=== PATIENT | female | born 1990 | race Caucasian/White ===

== ENCOUNTER 2017-08-01 20:19 | Emergency (ER) | payer OTHER ==
[2017-08-01 20:25] VITALS: BP 139/71
[2017-08-01 21:01] LABS: BILIRUBIN,URINE NEGATIVE (NEGATIVE)
[2017-08-01 21:04] LABS: HCG UR QUAL NEGATIVE; UA CHARGE (STRIP ONLY) YES; UR CULTURE IF IND NOT INDICATED
[2017-08-01] MEDS ORDERED: NITROFURANTOIN MACRO 100 MG CAPSULE PO STA (21:25)
--- NOTE | 2017-08-01 21:27 | ED Physician Documentation ---
PD HPI FEMALE - Stated complaint Stated Complaint: FEMALE - Chief complaint Chief Complaint: Abd Pain - History obtained from History obtained from: Patient, Family - History of Present Illness Timing - onset: Other (Starting last night feels like she is peeing razor blades and has mild right pelvic pain status post remote appendectomy. There is no fever, chill, nausea. No vaginal discharge.) Review of Systems Constitutional: denies: Fever, Chills Respiratory: denies: Dyspnea, Cough GI: denies: Abdominal Pain, Nausea, Vomiting, Diarrhea PD PAST MEDICAL HISTORY - Past Medical History Past Medical History: No - Past Surgical History Past Surgical History: Yes General: Appendectomy Ortho: Knee replacement - Present Medications Home Medications: Ambulatory Orders Medication Instructions Recorded Confirmed Nitrofurantoin Monohyd/M-Cryst 1 tab PO BID 5 Days capsule 08/01/17 [Macrobid 100 mg Capsule] - Allergies Allergies/Adverse Reactions: Allergies Allergy/AdvReac Type Severity Reaction Status Date / Time No Known Drug Allergies Allergy Verified 08/01/17 20:25 - Social History Does the pt smoke?: No Smoking Status: Never smoker Does the pt drink ETOH?: Yes ETOH Use: Wine, Beer, Liquor Does the pt have substance abuse?: No - Immunizations Immunizations are current?: Yes - POLST Patient has POLST: No PD ED PE NORMAL - Vitals Vital signs reviewed: Yes - General General: Alert and oriented X 3, No acute distress - Abdomen Abdomen: Soft, Non tender - Back Back: No CVA TTP - Neuro Neuro: Alert and oriented X 3, Normal speech Results - Vitals Vitals: Vital Signs - 24 hr 08/01/17 20:22 Temperature 36.3 C L Heart Rate 64 Respiratory 14 Rate Blood Pressure 139/71 H O2 Saturation 100 Oxygen O2 Source Room air - Labs Labs: Laboratory Tests 08/01/17 20:30 Urine Color YELLOW Urine Clarity CLEAR Urine pH 6.0 Ur Specific [place] 1.025 Urine Protein NEGATIVE Urine Glucose (UA) NEGATIVE Urine Ketones NEGATIVE Urine Occult Blood NEGATIVE Urine Nitrite NEGATIVE Urine Bilirubin NEGATIVE Urine Urobilinogen 0.2 (NORMAL) Ur Leukocyte Esterase NEGATIVE Ur Microscopic Review NOT INDICATED Urine Culture Comments NOT INDICATED Urine HCG, Qual NEGATIVE PD MEDICAL DECISION MAKING - ED course ED course: 26-year-old woman with symptoms consistent with typical cystitis, she has a normal urinalysis though. It is not impossible to have a bladder infection in the setting of a normal urinalysis, this is well reported phenomenon and this was discussed with the patient, that said, I offered and recommended pelvic examination for wet mount and MOISES. She declined that and would like to return in a short time course if not improved on antibiotics. Departure - Departure Disposition: Home, Self Care Clinical Impression: Cystitis Condition: Good Record reviewed to determine appropriate education?: Yes Instructions: ED UTI Cystitis Female Prescriptions: Nitrofurantoin Monohyd/M-Cryst [Macrobid 100 mg Capsule] 1 tab PO BID 5 Days capsule Comments: As discussed it is a little atypical that your urinalysis is normal, if you are not better in 24-36 hours please return for reevaluation, sooner if worse. Your blood pressure was elevated today on check into the emergency department. This does not mean that you have hypertension, it is a common phenomenon to come to the emergency department and have elevated blood pressure. I recommend that you see your primary care physician within the week to have it rechecked when you are feeling better. Discharge Date/Time: 08/01/17 21:26
[2017-08-01] MEDS ORDERED: NITROFURANTOIN MACRO 100 MG CAPSULE PO ONE (21:34)
== END 2017-08-01 21:26 | disposition home or self-care (01) ==
LOC: ED 20:19
DX: N30.90 Cystitis, unspecified without hematuria (principal); R03.0 Elevated blood-pressure reading, without diagnosis of hypertension; Z96.659 Presence of unspecified artificial knee joint
CPT/HCPCS: 81003; 81025; 99282; 99283; A9270; 80053; 81001; 83690; 85025; 87086

== ENCOUNTER 2017-08-03 16:06 | Emergency (ER) | payer OTHER ==
[2017-08-03 16:44] VITALS: BP 126/85
[2017-08-03 17:00] LABS: BILIRUBIN,URINE NEGATIVE (NEGATIVE); PH,URINE 6.5 PH (5.0-7.5)
[2017-08-03 17:02] LABS: UA CHARGE (STRIP ONLY) YES; UR CULTURE IF IND NOT INDICATED
--- NOTE | 2017-08-03 17:18 | ED Physician Documentation ---
PD HPI FEMALE - Stated complaint Stated Complaint: FEMALE - Chief complaint Chief Complaint: General - History obtained from History obtained from: Patient, Family - History of Present Illness Timing - onset: How many days ago (3) Timing - duration: Days (3) Timing - details: Gradual onset Pain level max: 6, 7 Pain level max: 5 Associated symptoms: Abdominal pain (R pelvic pain), Dysuria. No: Fever, Chest/ shoulder pain, Vaginal pain, Vaginal bleeding, Vaginal discharge, Urinary frequency, Hematuria Contributing factors: No: Similar symptoms before: Diagnosis (UTI) - Additional information Additional information: seen here 2 days ago for same. placed on macrobid. states symptoms are no better. No vaginal bleeding or discharge. no itching. Review of Systems Ten Systems: 10 systems reviewed and negative Constitutional: denies: Fever, Chills Ears: denies: Ear pain Cardiac: denies: Chest pain / pressure Respiratory: denies: Cough GI: denies: Abdominal Pain, Nausea, Vomiting, Diarrhea : reports: Dysuria Skin: denies: Rash Musculoskeletal: denies: Neck pain, Back pain Neurologic: denies: Headache PD PAST MEDICAL HISTORY - Past Medical History Past Medical History: No - Past Surgical History Past Surgical History: Yes General: Appendectomy Ortho: Knee replacement - Present Medications Home Medications: Ambulatory Orders Medication Instructions Recorded Confirmed Nitrofurantoin Monohyd/M-Cryst 1 tab PO BID 5 Days capsule 08/01/17 08/03/17 [Macrobid 100 mg Capsule] Metronidazole [Flagyl] 500 mg PO BID #14 tablet 08/03/17 - Allergies Allergies/Adverse Reactions: Allergies Allergy/AdvReac Type Severity Reaction Status Date / Time No Known Drug Allergies Allergy Verified 08/03/17 16:44 - Living Situation Living Situation: reports: With family Living Arrangement: reports: At home - Social History Does the pt smoke?: No Smoking Status: Never smoker Does the pt drink ETOH?: Yes Does the pt have substance abuse?: No - Immunizations Immunizations are current?: Yes - POLST Patient has POLST: No PD ED PE NORMAL - Vitals Vital signs reviewed: Yes - General General: Alert and oriented X 3, No acute distress - HEENT HEENT: Moist mucous membranes - Neck Neck: Supple, no meningeal sign - Cardiac Cardiac: RRR - Respiratory Respiratory: No respiratory distress, Clear bilaterally - Abdomen Abdomen: Soft, Other (TTP R pelvic. no peritoneal signs.) - Female Female : [employer] present ([employer]), Other (thick white discharge. irritated cervix and vaginal inman. No CMT. no adnexal masses. ) - Back Back: No CVA TTP, No spinal TTP - Derm Derm: Warm and dry, No rash - Neuro Neuro: Alert and oriented X 3 Results - Vitals Vitals: Vital Signs - 24 hr 08/03/17 16:39 Temperature 36.8 C Heart Rate 72 Respiratory 16 Rate Blood Pressure 126/85 H O2 Saturation 100 Oxygen O2 Source Room air - Labs Labs: Microbiology 08/03/17 17:30 MOISES Preparation - Final Other - Vaginal 08/03/17 17:30 Wet Prep - Final Vaginal Laboratory Tests 08/03/17 16:50 Urine Color YELLOW Urine Clarity CLEAR Urine pH 6.5 Ur Specific [place] <=1.005 Urine Protein NEGATIVE Urine Glucose (UA) NEGATIVE Urine Ketones NEGATIVE Urine Occult Blood NEGATIVE Urine Nitrite NEGATIVE Urine Bilirubin NEGATIVE Urine Urobilinogen 0.2 (NORMAL) Ur Leukocyte Esterase NEGATIVE Ur Microscopic Review NOT INDICATED Urine Culture Comments NOT INDICATED - Rads (name of study) pelvic US Radiology: Prelim report reviewed, EMP read contemporaneously, See rad report ( normal) PD MEDICAL DECISION MAKING - ED course Complexity details: reviewed results, re-evaluated patient, considered differential, d/w patient, d/w family ED course: Patient is a 26-year-old female who presents to the emergency department with dysuria as well as right lower pelvic pain. Has a questionable cyst with questionable hemorrhage in the left ovary. Possibly contributing to her pain? She has had pain for several days, possible that is involuting. She also has some white blood cells in her vaginal canal along with discharge. Will treat with Diflucan and Flagyl. Gonorrhea and Chlamydia testing also sent even though she is low risk for this. We will continue supportive care and follow- up with her doctor. Patient counseled regarding signs and symptoms for which I believe and urgent re-evaluation would be necessary. Patient with good understanding of and agreement to plan and is comfortable going home at this time This document was made in part using voice recognition software. While efforts are made to proofread this document, sound alike and grammatical errors may occur. Departure - Departure Disposition: 01 Home, Self Care Clinical Impression: Bacterial vaginitis, Yeast infection Condition: Good Instructions: ED Vaginosis Bacterial Follow-Up: your,doctor in 1 week [Other] Prescriptions: Metronidazole [Flagyl] 500 mg PO BID #14 tablet Comments: Return if you worsen. this should improve over the next 2-3 days Discharge Date/Time: 08/03/17 19:35
--- NOTE | 2017-08-03 19:09 | Ultrasound Preliminary Report ---
Exam: US PELVIC COMPLETE - NON OB IMPRESSION: Normal pelvic ultrasound. [facility] SITE ID: [id number]
--- NOTE | 2017-08-03 19:11 | Ultrasound Report ---
EXAM: PELVIC ULTRASOUND EXAM DATE: 08/03/2017 06:48 PM. CLINICAL HISTORY: R pelvic pain. COMPARISON: None. TECHNIQUE: Realtime transabdominal pelvic scan performed to identify the uterus and adnexa and as an overview of other pelvic structures, followed by transvaginal scan to provide greater detail of the u terus and adnexa, with static image documentation. FINDINGS: Uterus: 7.9 x 3.5 x 4.9 cm, volume 68.9 cc. Anteverted position. Normal overall size and echotexture. Masses: None. Endometrium: 9 mm. Normal. Cervix: Unremarkable. Right Ovary: 2.9 x 1.6 x 2.3 cm, volume 5.6 cc. Normal echotexture and blood flow. Left Ovary: 2.9 x 2.0 x 3.1 cm, volume 9.5 cc. Normal echotexture and blood flow. Contains a 1.8 cm i nvoluting corpus luteal cyst. Free Fluid: Small fluid volume considered physiologic. Other: None. IMPRESSION: Normal pelvic ultrasound. [facility] Referring Provider Line: [phone] SITE ID: [id number]
--- NOTE | 2017-08-03 19:11 | Ultrasound Preliminary Report ---
Exam: US TRANSVAGINAL Normal pelvic ultrasound exam. SITE ID: [id number]
[2017-08-03] MEDS ORDERED: FLUCONAZOLE 100 MG TABLET PO STA (19:16)
[2017-08-03] MEDS ORDERED: metroNIDAZOLE 250 MG TABLET PO STA (19:16)
[2017-08-03] MEDS ORDERED: metroNIDAZOLE 250 MG TABLET PO ONE ×2 (19:24→19:32)
[2017-08-03] MEDS ORDERED: FLUCONAZOLE 100 MG TABLET ONE ×2 (19:25→19:26)
--- NOTE | 2017-08-03 19:48 | Ultrasound Report ---
EXAM: PELVIC ULTRASOUND EXAM DATE: 08/03/2017 06:48 PM. CLINICAL HISTORY: Right pelvic pain. COMPARISON: None. TECHNIQUE: Realtime transabdominal pelvic scan performed to identify the uterus and adnexa and as an overview of other pelvic structures, followed by transvaginal scan to provide greater detail of the u terus and adnexa, with static image documentation. FINDINGS: Uterus: 7.9 x 3.5 x 4.9 cm, volume 68.9 cc. Anteverted position. Normal overall size and echotexture. Masses: None. Endometrium: 9 mm. Normal. Cervix: Unremarkable. Right Ovary: 2.9 x 1.6 x 2.3 cm, volume 5.6 cc. Normal echotexture and blood flow. Left Ovary: 2.9 x 2.0 x 3.1 cm, volume 9.5 cc. Normal echotexture and blood flow. Contains a 1.8 cm i nvoluting corpus luteal cyst. Free Fluid: Small fluid volume considered physiologic. Other: None. IMPRESSION: Normal pelvic ultrasound. [facility] Referring Provider Line: [phone] SITE ID: [id number]
== END 2017-08-03 19:35 | disposition home or self-care (01) ==
LOC: ED 16:06
DX: N76.0 Acute vaginitis (principal); B96.89 Other specified bacterial agents as the cause of diseases classified elsewhere; B37.3 Candidiasis of vulva and vagina; Z96.659 Presence of unspecified artificial knee joint
CPT/HCPCS: 76830; 76856; 81003; 87210; 87220; 87491; 87591; 99283; A9270; 81001; 87086

== ENCOUNTER 2019-07-12 08:00 | Outpatient (CLI) | payer OTHER ==
[2019-07-12 20:51] LABS: CANDIDA GROUP DNA POSITIVE (NEGATIVE); CANDIDA KRUSEI DNA NEGATIVE (NEGATIVE); TRICHOMONAS VAGINALIS DNA NEGATIVE (NEGATIVE)
== END 2019-07-12 23:59 | disposition home or self-care (01) ==
LOC: LAB.R 08:00
PROVIDERS: ATTEND Nurse Practitioner Obstetrics & Gynecology
DX: N76.0 Acute vaginitis (principal)
CPT/HCPCS: 87661; 87801

== ENCOUNTER 2019-07-12 08:59 | Outpatient (CLI) | payer OTHER | END 2019-07-12 09:00 | disposition home or self-care (01) | LOC: LAB 08:59 | PROVIDERS: ATTEND Nurse Practitioner Obstetrics & Gynecology | DX: N76.0 Acute vaginitis (principal); R63.5 Abnormal weight gain | CPT/HCPCS: 36415; 84443; 87661; 87801 ==

== ENCOUNTER 2019-09-10 08:00 | Outpatient (CLI) | payer OTHER ==
[2019-09-10 23:04] LABS: CANDIDA GROUP DNA NEGATIVE (NEGATIVE); CANDIDA KRUSEI DNA NEGATIVE (NEGATIVE); TRICHOMONAS VAGINALIS DNA NEGATIVE (NEGATIVE)
== END 2019-09-10 23:59 | disposition home or self-care (01) ==
LOC: LAB.R 08:00
PROVIDERS: ATTEND Nurse Practitioner Obstetrics & Gynecology
DX: N76.0 Acute vaginitis (principal)
CPT/HCPCS: 87661; 87801

== ENCOUNTER 2020-02-19 05:29 | Emergency (ER) | payer OTHER ==
[2020-02-19 05:40] VITALS: BP 137/79
--- NOTE | 2020-02-19 05:54 | ED Physician Documentation ---
PD HPI BACK PAIN - Stated complaint Stated Complaint: BACK INJ - Chief complaint Chief Complaint: Back Pain - History obtained from History obtained from: Patient - History of Present Illness Timing - onset: Last night Timing - details: Abrupt onset Pain level max: 8 Pain level now: 8 Location: Lower, Other (across lower back, worst on right paralumbar) Quality: Pain Associated symptoms: No: Fever, Weakness, Numbness, Incontinent of urine, Unable to urinate, Hematuria, Incontinent of stool Improves with: Rest, Position (standing) Worsened by: Movement Contributing factors: Lifting Similar symptoms before: Has not had sx before Recently seen: Not recently seen - Additional information Additional information: c/o sudden onset low back pain last night when picking up her 80-pound dog. pain is across lower back but mostly right lower back, worse with movement, and unrelieved with ibuprofen Review of Systems Constitutional: denies: Fever GI: denies: Abdominal Pain, Nausea, Vomiting : denies: Incontinent Musculoskeletal: reports: Back pain Neurologic: denies: Focal weakness, Numbness PD PAST MEDICAL HISTORY - Past Medical History Past Medical History: No - Past Surgical History Past Surgical History: Yes General: Appendectomy Ortho: Knee replacement - Present Medications Home Medications: Ambulatory Orders Medication Instructions Recorded Confirmed Nitrofurantoin Monohyd/M-Cryst 1 tab PO BID 5 Days capsule 08/01/17 08/03/17 [Macrobid 100 mg Capsule] metroNIDAZOLE [Flagyl] 500 mg PO BID #14 tablet 08/03/17 Cyclobenzaprine [Flexeril] 10 mg PO TID PRN #20 tablet 02/19/20 oxyCODONE/ACET 5/325 [Percocet 5 1 - 2 each PO Q4-6H PRN #14 tablet 02/18/20 mg/325 mg] - Allergies Allergies/Adverse Reactions: Allergies Allergy/AdvReac Type Severity Reaction Status Date / Time No Known Drug Allergies Allergy Verified 02/19/20 05:40 - Living Situation Living Arrangement: reports: At home - Social History Does the pt smoke?: No Smoking Status: Never smoker Does the pt drink ETOH?: Yes Does the pt have substance abuse?: No - Immunizations Immunizations are current?: Yes - POLST Patient has POLST: No PD ED PE NORMAL - Vitals Vital signs reviewed: Yes - General General: Alert and oriented X 3, Well developed/nourished, Other (appears uncomfortable, mild-moderate painful distress) - Abdomen Abdomen: Soft, Non tender - Back Back: No CVA TTP, No spinal TTP - Derm Derm: Normal color, Warm and dry, No rash - Neuro Neuro: No motor deficit (5/5 bilateral plantar flexion), No sensory deficit, Other (2+/4 bilateral patellar reflexes) Results - Vitals Vitals: Vital Signs - 24 hr 02/19/20 02/19/20 05:38 06:42 Temperature 36.8 C Heart Rate 71 84 Respiratory 17 18 Rate Blood Pressure 137/79 H O2 Saturation 100 99 Oxygen O2 Source Room air PD MEDICAL DECISION MAKING - ED course Complexity details: considered differential, d/w patient ED course: atraumatic low back pain, sudden onset with obvious (temporally-related) inciting incident (heavy lifting). no "red flags" such as fever, numbness, weakness, incontinence, rash, or fever. emergent testing not indicated, will rx oxycodone and flexeril, rest and f/u with PMD, return if worse Departure - Departure Disposition: 01 Home, Self Care Clinical Impression: Back sprain Condition: Good Instructions: ED Sprain Strain Lumbar Prescriptions: Cyclobenzaprine [Flexeril] 10 mg PO TID PRN #20 tablet PRN Reason: Spasms oxyCODONE/ACET 5/325 [Percocet 5 mg/325 mg] 1 - 2 each PO Q4-6H PRN #14 tablet PRN Reason: Pain Forms: Activity restrictions Discharge Date/Time: 02/19/20 06:42
[2020-02-19] MEDS ORDERED: oxyCODONE/ACET 5/325 Prepack 4 PO STA (06:32)
[2020-02-19] MEDS ORDERED: CYCLOBENZAPRINE 10 MG TABLET PO STA (06:33)
== END 2020-02-19 06:42 | disposition home or self-care (01) ==
LOC: ED 05:29
DX: S33.5XXA Sprain of ligaments of lumbar spine, initial encounter (principal); X50.0XXA Overexertion from strenuous movement or load, initial encounter; Y93.89 Activity, other specified
CPT/HCPCS: 99282; 99284; A9270

== ENCOUNTER 2020-03-06 13:45 | Outpatient (CLI) | payer OTHER ==
[2020-03-06 18:36] LABS: ALBUMIN 4.6 g/dL (3.2-5.5); ALBUMIN/GLOBULIN RATIO 1.5 (1.0-2.2); BILIRUBIN,TOTAL 0.6 mg/dL (0.2-1.0); CALCIUM 9.3 mg/dL (8.5-10.3); CREATININE 0.6 mg/dL (0.4-1.0); TOTAL PROTEIN 7.7 g/dL (6.7-8.2)
[2020-03-06 18:51] LABS: BASOPHILS % (AUTO) 0.4 %; EOSINOPHILS # (AUTO) 0.1 10^3/uL (0.0-0.7); HGB - HEMOGLOBIN 13.4 g/dL (12.0-16.0); LYMPHOCYTES # (AUTO) 1.7 10^3/uL (1.5-3.5); LYMPHOCYTES % (AUTO) 24.7 %; MEAN CORPUSCULAR HEMOGLOBIN 30.4 pg (27.0-31.0); MEAN CORPUSCULAR HGB CONC 33.3 g/dL (32.0-36.0); MEAN CORPUSCULAR VOLUME 91.4 fL (81.0-99.0); MEAN PLATELET VOLUME 11.2 fL (7.9-10.8); MONOCYTES # (AUTO) 0.4 10^3/uL (0.0-1.0); MONOCYTES % (AUTO) 5.2 %; NEUTROPHILS # (AUTO) 4.7 10^3/uL (1.5-6.6); NEUTROPHILS % (AUTO) 68.4 %; PLT - PLATELET COUNT 238 10^3/uL (130-450); RED BLOOD COUNT 4.41 10^6/uL (4.20-5.40); RED CELL DISTRIBUTION WIDTH 11.6 % (12.0-15.0); WHITE BLOOD COUNT 6.9 x10^3/uL (4.8-10.8)
== END 2020-03-06 23:59 | disposition home or self-care (01) ==
LOC: LAB.WCP 13:45
PROVIDERS: ATTEND Physician Assistant
DX: Z00.00 Encounter for general adult medical examination without abnormal findings (principal); R63.5 Abnormal weight gain
CPT/HCPCS: 36415; 80053; 84443; 85025

== ENCOUNTER 2020-06-20 10:59 | Outpatient (CLI) | payer OTHER ==
--- NOTE | 2020-06-20 11:47 | XRAY Report ---
PROCEDURE: Lumbar Spine 2 View INDICATIONS: LOW BACK PAIN, CHRONIC TECHNIQUE: 2 views of the lumbar spine were acquired. COMPARISON: None. FINDINGS: Bones: 5 [id number] vertebrae are present. There is normal vertebral body height and alignment . L4-L5 disc height loss. Mild facet osteoarthropathy of the L4-L5 and L5-S1. No suspicious bony lesi ons. Soft tissues: Overlying bowel gas pattern is normal. No suspicious soft tissue calcifications. IMPRESSION: Lower lumbar spine degenerative changes. Reviewed by: Shon Linton MD on 06/20/2020 11:46 AM PDT Approved by: Shon Linton MD on 06/20/2020 11:46 AM PDT Station ID: [id number]
== END 2020-06-20 11:00 | disposition home or self-care (01) ==
LOC: DI 10:59
PROVIDERS: ATTEND Family Medicine
DX: M47.816 Spondylosis without myelopathy or radiculopathy, lumbar region (principal)
CPT/HCPCS: 72100

== ENCOUNTER 2021-01-24 16:17 | Outpatient (CLI) | payer OTHER ==
--- NOTE | 2021-01-25 15:18 | Ultrasound Report ---
PROCEDURE: OB First Trimester INDICATIONS: + TEST OUTSIDE/PRIOR DATING DATA: Last menstrual period (LMP): 12/01/2020. LMP-based estimated date of delivery (JADIEL): 09/07/2021. First dating scan (date and location): This study. Estimated date of delivery (JADIEL) from first dating scan: 09/02/2021. TECHNIQUE: Real-time scanning was performed of the fetus and maternal pelvic organs, with image documentation. COMPARISON: None FINDINGS: There is a single living intrauterine gestation with crown-rump length 1.9 cm correlated w ith a gestational age of 8 weeks 3 days, +/- 5 days. heart rate at 171 bpm is normal. Maternal cervix is closed. Amniotic fluid present is normal in appearance. Embryo: Viable gestation with small adjacent perigestational hemorrhage as noted below. Measurement variability in dating: +/- 4 weeks by LMP, +/- 7 days by mean sac diameter (use before 6 weeks gestation if crown-rump length not able to be measured), +/- 5 days by crown-rump length (6-12 weeks gestation). Maternal organs: Ovaries normal considering gestational status. IMPRESSION: First trimester intrauterine gestation, with estimated current gestational age of 8 weeks 3 days, +/- 5 days and with the delivery date projected to be centered on 09/02/2021. A small subchorionic hemor rhage measuring 2.4 x 1.7 x 2.2 cm is incidentally noted. Follow-up anatomic survey ultrasound is recommended at 20-21 weeks of gestation. Reviewed by: Lazaro Rausch MD on 01/25/2021 3:16 PM PDT Approved by: Lazaro Rausch MD on 01/25/2021 3:16 PM PDT Station ID: [id number]
== END 2021-01-24 16:18 | disposition home or self-care (01) ==
LOC: DI 16:17
PROVIDERS: ATTEND Nurse Practitioner Obstetrics & Gynecology
DX: Z32.01 Encounter for pregnancy test, result positive (principal)

== ENCOUNTER 2021-02-14 11:02 | Outpatient (CLI) | payer OTHER ==
[2021-02-14 11:28] LABS: BASOPHILS % (AUTO) 0.1 %; EOSINOPHILS % (AUTO) 0.5 %; HCT - HEMATOCRIT 37.5 % (37.0-47.0); HGB - HEMOGLOBIN 12.9 g/dL (12.0-16.0); LYMPHOCYTES # (AUTO) 1.5 10^3/uL (1.5-3.5); LYMPHOCYTES % (AUTO) 19.3 %; MEAN CORPUSCULAR HEMOGLOBIN 30.4 pg (27.0-31.0); MEAN CORPUSCULAR HGB CONC 34.4 g/dL (32.0-36.0); MEAN CORPUSCULAR VOLUME 88.2 fL (81.0-99.0); MEAN PLATELET VOLUME 10.5 fL (7.9-10.8); MONOCYTES # (AUTO) 0.3 10^3/uL (0.0-1.0); MONOCYTES % (AUTO) 4.4 %; NEUTROPHILS # (AUTO) 5.7 10^3/uL (1.5-6.6); NEUTROPHILS % (AUTO) 75.6 %; PLT - PLATELET COUNT 207 10^3/uL (130-450); RED BLOOD COUNT 4.25 10^6/uL (4.20-5.40); RED CELL DISTRIBUTION WIDTH 12.3 % (12.0-15.0); WHITE BLOOD COUNT 7.6 x10^3/uL (4.8-10.8)
[2021-02-21 11:57] LABS: HEPATITIS B SURFACE ANTIGEN NON-REACTIVE
[2021-02-21 12:00] LABS: HEPATITIS C ANTIBODY NON-REACTIVE
== END 2021-02-14 11:03 | disposition home or self-care (01) ==
LOC: LAB 11:02
PROVIDERS: ATTEND Nurse Practitioner Obstetrics & Gynecology
DX: Z34.90 Encounter for supervision of normal pregnancy, unspecified, unspecified trimester (principal); Z36.89 Encounter for other specified antenatal screening
CPT/HCPCS: 36415; 85025; 86592; 86762; 86787; 86803; 86850; 86900; 86901; 87340; 87389

== ENCOUNTER 2021-07-04 14:01 | Outpatient (CLI) | payer OTHER ==
[2021-07-04 14:23] LABS: HCT - HEMATOCRIT 36.9 % (37.0-47.0); HGB - HEMOGLOBIN 12.3 g/dL (12.0-16.0); MEAN CORPUSCULAR HEMOGLOBIN 31.4 pg (27.0-31.0); MEAN CORPUSCULAR HGB CONC 33.3 g/dL (32.0-36.0); MEAN CORPUSCULAR VOLUME 94.1 fL (81.0-99.0); RED BLOOD COUNT 3.92 10^6/uL (4.20-5.40); RED CELL DISTRIBUTION WIDTH 12.6 % (12.0-15.0); WHITE BLOOD COUNT 12.9 x10^3/uL (4.8-10.8)
[2021-07-04 14:36] LABS: ALBUMIN 3.3 g/dL (3.2-5.5); ALBUMIN/GLOBULIN RATIO 0.9 (1.0-2.2); BILIRUBIN,TOTAL 0.3 mg/dL (0.2-1.0); CREATININE 0.5 mg/dL (0.4-1.0); POTASSIUM 3.8 mmol/L (3.5-5.0); TOTAL PROTEIN 7.1 g/dL (6.7-8.2)
[2021-07-04 15:46] LABS: CREATININE,URINE 62.6 mg/dL; PROTEIN/CREATININE RATIO,URINE 0.2 (<=0.2)
== END 2021-07-04 14:02 | disposition home or self-care (01) ==
LOC: LAB 14:01
PROVIDERS: ATTEND Nurse Practitioner Obstetrics & Gynecology
DX: R03.0 Elevated blood-pressure reading, without diagnosis of hypertension (principal)
CPT/HCPCS: 36415; 80053; 82570; 84156; 85027

== ENCOUNTER 2021-07-12 11:30 | Outpatient (CLI) | payer OTHER ==
[2021-07-12 20:28] LABS: BACTERIAL VAGINOSIS DNA NEGATIVE (NEGATIVE); CANDIDA GLABRATA DNA NEGATIVE (NEGATIVE); CANDIDA GROUP DNA POSITIVE (NEGATIVE); CANDIDA KRUSEI DNA NEGATIVE (NEGATIVE); TRICHOMONAS VAGINALIS DNA NEGATIVE (NEGATIVE)
== END 2021-07-12 23:59 | disposition home or self-care (01) ==
LOC: LAB 11:30
PROVIDERS: ATTEND Obstetrics & Gynecology
DX: O99.891 Other specified diseases and conditions complicating pregnancy (principal); L29.8 Other pruritus
CPT/HCPCS: 87661; 87801

== ENCOUNTER 2021-08-02 14:22 | Outpatient (CLI) | payer OTHER ==
[2021-08-02 16:33] LABS: BASOPHILS % (AUTO) 0.3 %; EOSINOPHILS # (AUTO) 0.1 10^3/uL (0.0-0.7); HCT - HEMATOCRIT 35.7 % (37.0-47.0); LYMPHOCYTES # (AUTO) 1.9 10^3/uL (1.5-3.5); LYMPHOCYTES % (AUTO) 14.9 %; MEAN CORPUSCULAR HEMOGLOBIN 30.9 pg (27.0-31.0); MEAN CORPUSCULAR HGB CONC 33.6 g/dL (32.0-36.0); MEAN PLATELET VOLUME 10.2 fL (7.9-10.8); MONOCYTES # (AUTO) 0.8 10^3/uL (0.0-1.0); MONOCYTES % (AUTO) 6.3 %; NEUTROPHILS # (AUTO) 9.7 10^3/uL (1.5-6.6); NEUTROPHILS % (AUTO) 76.6 %; PLT - PLATELET COUNT 190 10^3/uL (130-450); RED BLOOD COUNT 3.88 10^6/uL (4.20-5.40); RED CELL DISTRIBUTION WIDTH 12.6 % (12.0-15.0); WHITE BLOOD COUNT 12.6 x10^3/uL (4.8-10.8)
[2021-08-02 16:45] LABS: ALBUMIN 3.1 g/dL (3.2-5.5); BILIRUBIN,TOTAL 0.5 mg/dL (0.2-1.0); CALCIUM 9.3 mg/dL (8.5-10.3); CREATININE 0.8 mg/dL (0.4-1.0); POTASSIUM 3.7 mmol/L (3.5-5.0); TOTAL PROTEIN 6.3 g/dL (6.7-8.2)
[2021-08-02 17:11] LABS: CREATININE,URINE 91.7 mg/dL; PROTEIN/CREATININE RATIO,URINE 0.1 (<=0.2)
[2021-08-02 17:31] VITALS: BP 137/78
--- NOTE | 2021-08-02 17:51 | PROCEDURE REPORT ---
- HPI Diagnosis/Indication for NST: Gestational Hypertension Current EDU 09/07/21 Gestation 34 Weeks and 6 Days 1 Para 0 Vital Signs Temperature 98.6 F 08/02/21 14:33 Heart Rate 98 08/02/21 14:33 Respiratory Rate 18 08/02/21 14:33 Blood Pressure 162/91 H 08/02/21 14:33 O2 Saturation 100 08/02/21 14:33 Temperature 98.6 F 08/02/21 14:35 Heart Rate 98 08/02/21 14:33 Respiratory Rate 18 08/02/21 14:33 Blood Pressure 137/78 H 08/02/21 17:31 O2 Saturation 100 08/02/21 14:33 - NST Procedure NST Procedure Start Date 08/02/21 Start Time 14:31 Stop Time 14:55 Vibroacoustic Stimulation Used No Patient States Movement Yes - Results and Plan Findings/Impression: heart rate baseline 150 bpm Moderate variability Accelerations 15 x 15 Decelerations none Rare contractions with one noted in 20 minutes BPP 8 out of 8 Plan: 30-year-old at 34 weeks 6 days with gestational hypertension presenting for scheduled NST and BPP. BPP reactive and reassuring NST and BPP reactive and reassuring. Initial blood pressure was severe range. Status post prolonged blood pressure monitoring and blood pressures were mild to normal range. Preeclampsia labs within normal limits. Preeclampsia warnings given. Continue testing.
--- NOTE | 2021-08-02 18:24 | Ultrasound Report ---
PROCEDURE: OB Biophysical Profile INDICATIONS: GHTN OUTSIDE/PRIOR DATING DATA: Last menstrual period (LMP): 12/01/2020. LMP-based estimated date of delivery (JADIEL): 09/07/2021. First dating scan (date and location): 01/24/2021. Estimated date of delivery (JADIEL) from first dating scan: 09/02/2021. TECHNIQUE: Real-time scanning was performed of the fetus, with image documentation and biometric jairo surements. Biophysical profile was also obtained. Endovaginal scanning: None COMPARISON: 01/24/2021 FINDINGS: General: A single living intrauterine gestation is present. Presentation: Vertex Placenta: Placental position is anterior, without previa. Amniotic fluid index: 19.2 cm, normal for gestational age. heart rate: 131 beats per minute. Maternal cervical canal: Nonvisualized Estimated gestational age from initial scan: 35 week 4 day Biophysical profile: 8 out of 8 Tone: 2 points. Movement: 2 points. Respiration: 2 points. Largest pocket of fluid: 2 points. Largest vertical pocket 6.1 cm Umbilical artery Doppler ratios: 2.6, 2.2, 2.2 IMPRESSION: Single live intrauterine consistent with 35 week 4 day gestation. Biophysical profile score 8 out of 8. Amniotic fluid index 19.2 cm Reviewed by: Austin Blanton MD on 08/02/2021 5:22 PM [place] Approved by: Austin Blanton MD on 08/02/2021 5:22 PM AKST Station ID: [id number]
== END 2021-08-02 17:41 | disposition home or self-care (01) ==
LOC: WFO 14:22 → FBP 14:28 → WFO 17:41
PROVIDERS: ATTEND Obstetrics & Gynecology
DX: O13.3 Gestational [pregnancy-induced] hypertension without significant proteinuria, third trimester (principal); Z3A.34 34 weeks gestation of pregnancy
CPT/HCPCS: 36415; 59025; 80053; 82570; 84156; 85025; 99215

== ENCOUNTER 2021-08-07 13:56 | Outpatient (CLI) | payer OTHER ==
[2021-08-07 15:47] LABS: BASOPHILS % (AUTO) 0.1 %; EOSINOPHILS # (AUTO) 0.1 10^3/uL (0.0-0.7); HCT - HEMATOCRIT 35.3 % (37.0-47.0); HGB - HEMOGLOBIN 11.8 g/dL (12.0-16.0); LYMPHOCYTES # (AUTO) 1.4 10^3/uL (1.5-3.5); LYMPHOCYTES % (AUTO) 13.2 %; MEAN CORPUSCULAR HEMOGLOBIN 31.2 pg (27.0-31.0); MEAN CORPUSCULAR HGB CONC 33.4 g/dL (32.0-36.0); MEAN CORPUSCULAR VOLUME 93.4 fL (81.0-99.0); MEAN PLATELET VOLUME 10.6 fL (7.9-10.8); MONOCYTES # (AUTO) 0.7 10^3/uL (0.0-1.0); MONOCYTES % (AUTO) 6.7 %; NEUTROPHILS # (AUTO) 8.2 10^3/uL (1.5-6.6); NEUTROPHILS % (AUTO) 78.5 %; PLT - PLATELET COUNT 211 10^3/uL (130-450); RED BLOOD COUNT 3.78 10^6/uL (4.20-5.40); RED CELL DISTRIBUTION WIDTH 12.8 % (12.0-15.0); WHITE BLOOD COUNT 10.4 x10^3/uL (4.8-10.8)
[2021-08-07 15:56] LABS: ALBUMIN 2.9 g/dL (3.2-5.5); ALBUMIN/GLOBULIN RATIO 0.9 (1.0-2.2); ALKALINE PHOSPHATASE 103 IU/L (42-121); ALT ALANINE AMINOTRANSFERASE 21 IU/L (10-60); AST ASPARTATE AMINOTRANSFERASE 19 IU/L (10-42); BILIRUBIN,TOTAL < 0.2 mg/dL (0.2-1.0); BUN - BLOOD UREA NITROGEN 9 mg/dL (6-20); CALCIUM 9.4 mg/dL (8.5-10.3); CARBON DIOXIDE - CO2 22 mmol/L (21-32); CHLORIDE 103 mmol/L (101-111); CREATININE 0.6 mg/dL (0.4-1.0); GFR - MDRD 117 (>89); GLUCOSE 125 mg/dL (70-100); POTASSIUM 3.5 mmol/L (3.5-5.0); SODIUM 136 mmol/L (135-145); TOTAL PROTEIN 6.1 g/dL (6.7-8.2)
--- NOTE | 2021-08-07 15:58 | PROCEDURE REPORT ---
- HPI Diagnosis/Indication for NST: Gestational Hypertension Vital Signs Temperature 98.1 F 08/07/21 14:07 Heart Rate 106 H 08/07/21 14:07 Respiratory Rate 20 08/07/21 14:07 Blood Pressure 141/91 H 08/07/21 14:07 Temperature 98.8 F 08/07/21 14:10 Heart Rate 106 H 08/07/21 14:30 Respiratory Rate 20 08/07/21 14:07 Blood Pressure 133/79 H 08/07/21 14:30 O2 Saturation - NST Procedure NST Procedure Start Time 14:31 Stop Time 14:55 30 yo at 35 5/7 weeks presents for NST for Gestational Hypertension. Patient reports good movement. Patient denies contractions, SROM or vaginal bleeding. Patient denies headaches, blurred vision or Right upper quadrant pain. O- BP today was 141/91, then 156/88, 148/78, 123/78, 122/71 NST: baseline 140 with Moderate variability and 15X15 accelerations. No decelerations. No contractions. Reactive NST, Category I Monitor strip. A-IUP 35 5/7 with Gestational Hypertension. P- Keep all clinic and monitoring appoitments.
--- NOTE | 2021-08-07 16:03 | PROVIDER PROGRESS NOTE ---
- HPI Chief Complaint: Hypertension/PIH Current : Vital Signs Temperature 98.1 F 08/07/21 14:07 Heart Rate 106 H 08/07/21 14:07 Respiratory Rate 20 08/07/21 14:07 Blood Pressure 141/91 H 08/07/21 14:07 Temperature 98.8 F 08/07/21 14:10 Heart Rate 106 H 08/07/21 14:30 Respiratory Rate 20 08/07/21 14:07 Blood Pressure 133/79 H 08/07/21 14:30 O2 Saturation - Exam 30 yo 35 5/7 with Gestational Hypertension presented for NST. Patient had two elevated Blood pressures. Patient denies all symptoms. Patient reports good movement. Patient denies contractions, SROM or vaginal bleeding. O- 141/91, 148/78, 123/78, 122/71 General: Patient is resting on bed and is in no acute distress. Chest: Clear to auscultation. Good breath sounds in all coffey. Heart: RRR without murmur or gallop. Abdomen: Soft, non-tender to palpation, Gravid Extremities: No pitting pretibial or pedal edema, no calf tenderness NST: 140 baseline, moderate variability and Accelerations are present. Pre-Eclampsia labs are all within normal limits. Platelets are 211 thousand. Normal liver and kidney functions A-IUP 35 5/7 with Gestational Hypertension. P- Patient has BPP scheduled at 5:30 pm today. Keep all appointments. Follow- up with Dr. Felix on Friday as scheduled. If patient develops headache, blurred vision, right upper quadrant pain, or any labor symptoms she can come into labor and delivery. - Procedures NST Procedure: NST Procedure Start Time 14:31 Stop Time 14:55
[2021-08-07 16:29] VITALS: BP 132/67
[2021-08-07 16:47] LABS: CREATININE,URINE 38.8 mg/dL; PROTEIN/CREATININE RATIO,URINE 0.2 (<=0.2)
== END 2021-08-07 16:07 | disposition home or self-care (01) ==
LOC: WFO 13:56 → FBP 13:58 → WFO 16:07
PROVIDERS: ATTEND Obstetrics & Gynecology
DX: O13.3 Gestational [pregnancy-induced] hypertension without significant proteinuria, third trimester (principal); Z3A.35 35 weeks gestation of pregnancy
CPT/HCPCS: 36415; 59025; 80053; 82570; 84156; 84550; 85025

== ENCOUNTER 2021-08-07 17:33 | Outpatient (CLI) | payer OTHER ==
--- NOTE | 2021-08-15 14:08 | Ultrasound Report ---
PROCEDURE: OB Biophysical Profile INDICATIONS: GESTATIONAL HYPERTENSION, THIRD TRIMESTER OUTSIDE/PRIOR DATING DATA: Last menstrual period (LMP): 12/01/2020. LMP-based estimated date of delivery (JADIEL): 09/07/2021. First dating scan (date and location): 01/24/2021. Estimated date of delivery (JADIEL) from first dating scan: 09/02/2021. The below data below was generated using the ultrasound JADEIL of 09/02/2021 TECHNIQUE: Real-time scanning was performed of the fetus, with image documentation and biometric jairo surements. Biophysical profile was also obtained. COMPARISON: OB ultrasound 08/02/2021 FINDINGS: General: A single living intrauterine gestation is present. Presentation: Vertex Placenta: Placental position is anterior, without previa. Amniotic fluid index: 17.9 cm cm, within normal limits for gestational age. Largest pocket 4.7 cm heart rate: 136 beats per minute. Maternal cervical canal: 3.2 cm long; normal length is 2.5 cm or more. biometrics: Estimated gestational age from initial scan: 36 weeks 2 days Biophysical profile: Tone: 2 points. Movement: 2 points. Respiration: 2 points. Largest pocket of fluid: 2 points. Umbilical artery Doppler: 2.2, 2.3, 2.1 IMPRESSION: Single live intrauterine . BPP 8 out of 8 Reviewed by: Anat Steele MD on 08/08/2021 4:22 PM PST Approved by: Anat Steele MD on 08/08/2021 4:22 PM PST Station ID: [id number]
== END 2021-08-07 17:34 | disposition home or self-care (01) ==
LOC: DI 17:33
PROVIDERS: ATTEND Obstetrics & Gynecology
DX: O13.3 Gestational [pregnancy-induced] hypertension without significant proteinuria, third trimester (principal); Z3A.36 36 weeks gestation of pregnancy

== ENCOUNTER 2021-08-10 08:00 | Outpatient (CLI) | payer OTHER | END 2021-08-10 23:59 | disposition home or self-care (01) | LOC: LAB 08:00 | PROVIDERS: ATTEND Obstetrics & Gynecology | DX: Z36.85 Encounter for antenatal screening for Streptococcus B (principal) | CPT/HCPCS: 87797 ==

== ENCOUNTER 2021-08-10 12:22 | Outpatient (CLI) | payer OTHER ==
[2021-08-10 12:49] LABS: BASOPHILS % (AUTO) 0.3 %; EOSINOPHILS # (AUTO) 0.1 10^3/uL (0.0-0.7); EOSINOPHILS % (AUTO) 0.8 %; HCT - HEMATOCRIT 37.6 % (37.0-47.0); HGB - HEMOGLOBIN 12.6 g/dL (12.0-16.0); LYMPHOCYTES # (AUTO) 1.5 10^3/uL (1.5-3.5); LYMPHOCYTES % (AUTO) 12.6 %; MEAN CORPUSCULAR HEMOGLOBIN 31.1 pg (27.0-31.0); MEAN CORPUSCULAR HGB CONC 33.5 g/dL (32.0-36.0); MEAN CORPUSCULAR VOLUME 92.8 fL (81.0-99.0); MEAN PLATELET VOLUME 10.2 fL (7.9-10.8); MONOCYTES # (AUTO) 0.8 10^3/uL (0.0-1.0); MONOCYTES % (AUTO) 6.7 %; NEUTROPHILS # (AUTO) 9.2 10^3/uL (1.5-6.6); NEUTROPHILS % (AUTO) 78.8 %; PLT - PLATELET COUNT 201 10^3/uL (130-450); RED BLOOD COUNT 4.05 10^6/uL (4.20-5.40); RED CELL DISTRIBUTION WIDTH 12.7 % (12.0-15.0); WHITE BLOOD COUNT 11.7 x10^3/uL (4.8-10.8)
[2021-08-10 13:01] LABS: ALBUMIN/GLOBULIN RATIO 0.9 (1.0-2.2); BILIRUBIN,TOTAL 0.3 mg/dL (0.2-1.0); CALCIUM 9.5 mg/dL (8.5-10.3); CREATININE 0.6 mg/dL (0.4-1.0); POTASSIUM 3.7 mmol/L (3.5-5.0); TOTAL PROTEIN 6.5 g/dL (6.7-8.2)
[2021-08-10 13:10] LABS: CREATININE,URINE 50.4 mg/dL; PROTEIN/CREATININE RATIO,URINE 0.2 (<=0.2)
== END 2021-08-10 12:23 | disposition home or self-care (01) ==
LOC: LAB 12:22
PROVIDERS: ATTEND Obstetrics & Gynecology
DX: O13.3 Gestational [pregnancy-induced] hypertension without significant proteinuria, third trimester (principal)
CPT/HCPCS: 36415; 80053; 82570; 84156; 85025

== ENCOUNTER 2021-08-10 13:49 | Outpatient (CLI) | payer OTHER ==
[2021-08-10 15:25] VITALS: BP 130/81
--- NOTE | 2021-08-20 23:29 | PROCEDURE REPORT ---
- HPI Diagnosis/Indication for NST: Gestational Hypertension Current EDU 09/07/21 Gestation 36 Weeks and 0 Days 1 Para 0 Vital Signs Temperature 97.9 F 08/10/21 14:11 Heart Rate 107 H 08/10/21 14:11 Respiratory Rate 18 08/10/21 14:11 Blood Pressure 140/84 H 08/10/21 14:11 O2 Saturation 99 08/10/21 14:11 Temperature 97.9 F 08/10/21 14:11 Heart Rate 100 08/10/21 14:20 Respiratory Rate 18 08/10/21 14:11 Blood Pressure 130/81 H 08/10/21 14:45 O2 Saturation 99 08/10/21 14:11 - NST Procedure NST Procedure Start Date 08/10/21 Start Time 13:56 Stop Time 14:18 Vibroacoustic Stimulation Used No Patient States Movement Yes EFM 135 mod sarah 15x15 accels no decels TOCO: quiet - Results and Plan Findings/Impression: 30 yo at 36+0 with affected by GHTN here for NST Cat I tracing Cont with twice weekly NST and weekly LYNN Anticipate IOL at 37 wga DOS: 08/10/21 NST read 08/10/21 DX: IUP at 36+0 wga GHTN
== END 2021-08-10 15:15 | disposition home or self-care (01) ==
LOC: WFO 13:49 → FBP 13:51 → WFO 15:15
PROVIDERS: ATTEND Obstetrics & Gynecology
DX: O13.3 Gestational [pregnancy-induced] hypertension without significant proteinuria, third trimester (principal); Z36.85 Encounter for antenatal screening for Streptococcus B; Z3A.36 36 weeks gestation of pregnancy
CPT/HCPCS: 36415; 59025; 80053; 82570; 84156; 85025; 87797

== ENCOUNTER 2021-08-14 13:55 | Outpatient (CLI) | payer OTHER ==
[2021-08-14 14:36] VITALS: BP 141/87
--- NOTE | 2021-08-20 23:26 | PROCEDURE REPORT ---
- HPI Diagnosis/Indication for NST: Gestational Hypertension Current EDU 09/07/21 Gestation 36 Weeks and 4 Days 1 Para 0 Vital Signs Temperature 97.9 F 08/14/21 14:10 Heart Rate 100 08/14/21 14:10 Respiratory Rate 18 08/14/21 14:10 Blood Pressure 141/87 H 08/14/21 14:10 Temperature 97.9 F 08/14/21 14:35 Heart Rate 100 08/14/21 14:10 Respiratory Rate 18 08/14/21 14:10 Blood Pressure 141/87 H 08/14/21 14:10 O2 Saturation - NST Procedure NST Procedure Start Date 08/14/21 Start Time 14:02 Stop Time 14:30 Vibroacoustic Stimulation Used No Patient States Movement Yes EFM 145 mod sarah 15x15 accels no decels TOCO: quiet - Results and Plan Findings/Impression: 30 yo at 36+4 with affected by GHTN here for NST Cat I tracing Cont with twice weekly NST and weekly LYNN Anticipate IOL at 37 wga DOS: 08/14/21 NST read 08/14/21 DX: IUP at 36+4 wga GHTN
== END 2021-08-14 14:45 | disposition home or self-care (01) ==
LOC: WFO 13:55 → FBP 13:56 → WFO 14:45
PROVIDERS: ATTEND Obstetrics & Gynecology
DX: O13.3 Gestational [pregnancy-induced] hypertension without significant proteinuria, third trimester (principal); Z3A.37 37 weeks gestation of pregnancy
CPT/HCPCS: 59025

== ENCOUNTER 2021-08-14 15:30 | Outpatient (CLI) | payer OTHER ==
--- NOTE | 2021-08-14 18:04 | Ultrasound Report ---
PROCEDURE: OB F/U or Repeat INDICATIONS: GESTATION HTN, WEIGHT INCREASED OUTSIDE/PRIOR DATING DATA: Last menstrual period (LMP): 12/01/2020. LMP-based estimated date of delivery (JADIEL): 09/07/2021. First dating scan (date and location): 01/24/2021, physician's office. Estimated date of delivery (JADIEL) from first dating scan: 09/02/2021. The below data below was generated using the ultrasound JADIEL of TECHNIQUE: Real-time scanning was performed of the fetus, with image documentation and biometric measurements. Endovaginal scanning: Not performed COMPARISON: 08/07/2021 ultrasound biophysical profile FINDINGS: General: A single living intrauterine gestation is present. Presentation: Cephalic Placenta: Placental position is anterior, without previa. Amniotic fluid index: 15.8 cm, within normal limits for gestational age. heart rate: 135 beats per minute. Maternal cervical canal: Not seen at late stage of biometrics: Biparietal diameter: 10.0 cm, 41 weeks 2 days Head circumference: 35.45 cm, 41 weeks 3 days Abdominal circumference: 37.29 cm, 41 weeks 2 days Femur length: 7.63 cm, 39 weeks 0 days Estimated gestational age from initial scan: not applicable. Composite gestational age from present scan: 40 weeks 5 days Estimated weight and percentile: 4220 g +/- 6 125 g, greater than 99.5th percentile Measurement variability in biometric dating: +/- 10 days from 12-20 weeks gestation, +/- 2 weeks from 20-30 weeks gestation, +/- 3 weeks at 30 weeks gestation or more. Other: Not applicable. IMPRESSION: 1. Living late third trimester intrauterine . 2. Current ultrasound age is 24 days greater than clinical age based on initial ultrasound, large for gestational age fetus. Reviewed by: Jose Ibanez MD on 08/14/2021 6:02 PM PST Approved by: Jose Ibanez MD on 08/14/2021 6:02 PM PST Station ID: [id number]
== END 2021-08-14 23:59 | disposition home or self-care (01) ==
LOC: DI 15:30
PROVIDERS: ATTEND Obstetrics & Gynecology
DX: O13.3 Gestational [pregnancy-induced] hypertension without significant proteinuria, third trimester (principal); O26.03 Excessive weight gain in pregnancy, third trimester; Z3A.40 40 weeks gestation of pregnancy

== ENCOUNTER 2021-08-17 13:52 | Outpatient (CLI) | payer OTHER ==
[2021-08-17 14:07] VITALS: BP 137/84
--- NOTE | 2021-08-17 14:31 | PROCEDURE REPORT ---
- HPI Diagnosis/Indication for NST: Gestational Hypertension Vital Signs Temperature 98.9 F 08/17/21 14:01 Temperature 98.9 F 08/17/21 14:06 Heart Rate 95 08/17/21 14:06 Respiratory Rate 18 08/17/21 14:06 Blood Pressure 137/84 H 08/17/21 14:06 O2 Saturation 99 08/17/21 14:06 - NST Procedure NST Procedure Start Time 14:02 Stop Time 14:30 - Results and Plan Findings/Impression: Patient is [id number] G1, P0 at 37 weeks 0 days gestation here for scheduled NST. NST Performed 08/17/2021 NST Read 08/17/2021 heart tracin beats per baseline, moderate variability, accelerations present, no decelerations. [place]: Quiescent Diagnosis 37 weeks gestation Gestational hypertension Reactive NST Plan for induction of labor on 08/20/2021. Recommended labor induction today as she is 37 weeks, patient declines. Previously counseled in clinic about the risk and benefits of waiting past 37 weeks for gestational hypertension.
[2021-08-17 14:43] LABS: BILIRUBIN,URINE NEGATIVE (NEGATIVE); GLUCOSE, URINE (UA) NEGATIVE (NEGATIVE); KETONES,URINE (UA) NEGATIVE (NEGATIVE); LEUKOCYTE ESTERASE, URINE NEGATIVE (NEGATIVE); NITRITE,URINE NEGATIVE (NEGATIVE); OCCULT BLOOD,URINE NEGATIVE (NEGATIVE); PROTEIN,URINE NEGATIVE (NEGATIVE); UROBILINOGEN,URINE 0.2 (NORMAL) E.U./dL (NORMAL)
[2021-08-17 14:44] LABS: CLARITY,URINE HAZY (CLEAR)
[2021-08-17 14:55] LABS: AMORPHOUS SEDIMENT,UR Moderate /LPF; BACTERIA,URINE Few /HPF (None Seen); RBC,URINE 0-5 /HPF (0-5); SQUAMOUS EPITHELIAL CELL,UR MOD Squamous (<= Few); WBC,URINE 0-3 /HPF (0-5)
== END 2021-08-17 14:32 | disposition home or self-care (01) ==
LOC: WFO 13:52 → FBP 13:54 → WFO 14:32
PROVIDERS: ATTEND Obstetrics & Gynecology
DX: O13.3 Gestational [pregnancy-induced] hypertension without significant proteinuria, third trimester (principal); Z3A.37 37 weeks gestation of pregnancy
CPT/HCPCS: 59025; 81001; 81003; 87086; 99213

== ENCOUNTER 2021-08-20 07:33 | Inpatient (IN) | payer OTHER ==
[2021-08-20 10:15] LABS: BASOPHILS % (AUTO) 0.3 %; EOSINOPHILS # (AUTO) 0.1 10^3/uL (0.0-0.7); EOSINOPHILS % (AUTO) 0.5 %; HCT - HEMATOCRIT 35.6 % (37.0-47.0); HGB - HEMOGLOBIN 11.8 g/dL (12.0-16.0); LYMPHOCYTES # (AUTO) 1.4 10^3/uL (1.5-3.5); LYMPHOCYTES % (AUTO) 11.9 %; MEAN CORPUSCULAR HEMOGLOBIN 30.3 pg (27.0-31.0); MEAN CORPUSCULAR HGB CONC 33.1 g/dL (32.0-36.0); MEAN CORPUSCULAR VOLUME 91.5 fL (81.0-99.0); MEAN PLATELET VOLUME 10.5 fL (7.9-10.8); MONOCYTES # (AUTO) 0.6 10^3/uL (0.0-1.0); MONOCYTES % (AUTO) 5.1 %; NEUTROPHILS # (AUTO) 9.7 10^3/uL (1.5-6.6); NEUTROPHILS % (AUTO) 81.4 %; PLT - PLATELET COUNT 200 10^3/uL (130-450); RED BLOOD COUNT 3.89 10^6/uL (4.20-5.40); RED CELL DISTRIBUTION WIDTH 12.8 % (12.0-15.0); WHITE BLOOD COUNT 11.9 x10^3/uL (4.8-10.8)
[2021-08-20 10:23] LABS: ALBUMIN 2.8 g/dL (3.2-5.5); ALBUMIN/GLOBULIN RATIO 0.8 (1.0-2.2); BILIRUBIN,TOTAL 0.2 mg/dL (0.2-1.0); CALCIUM 9.7 mg/dL (8.5-10.3); CREATININE 0.4 mg/dL (0.4-1.0); POTASSIUM 3.6 mmol/L (3.5-5.0); TOTAL PROTEIN 6.4 g/dL (6.7-8.2)
[2021-08-20 11:32] LABS: CREATININE,URINE 95.6 mg/dL; PROTEIN/CREATININE RATIO,URINE 0.7 (<=0.2)
[2021-08-20] MEDS ORDERED: OXYTOCIN/SODIUM CHLORIDE 500 ML IV PRN ×2 (12:40→12:47)
[2021-08-20] MEDS ORDERED: CARBOPROST TROMETHAMINE 250 MCG/ML AMP IM PRN (12:40)
[2021-08-20] MEDS ORDERED: TRANEXAMIC ACID IN NACL 1,000 MG/100 ML BAG IV PRN (12:40)
[2021-08-20] MEDS ORDERED: SODIUM CHLORIDE FLUSH 0.9% 10 ML SYRINGE IVP PRN (12:40)
[2021-08-20] MEDS ORDERED: OXYTOCIN 10 UNIT/ML VIAL IM PRN (12:40)
[2021-08-20] MEDS ORDERED: LIDOCAINE-MPF 1% 30 ML VIAL ID PRN (12:40)
[2021-08-20] MEDS ORDERED: miSOPROStoL 200 MCG TABLET BC PRN (12:40)
[2021-08-20] MEDS ORDERED: METHYLERGONOVINE 0.2 MG/ML VIAL IM PRN (12:40)
[2021-08-20] MEDS ORDERED: ONDANSETRON 4 MG/2 ML VIAL IVP PRN (12:47)
[2021-08-20] MEDS ORDERED: NIFEdipine 10 MG CAPSULE PO PRN (12:47)
[2021-08-20] MEDS ORDERED: fentaNYL 100 MCG/2 ML VIAL IVP PRN (12:47)
[2021-08-20] MEDS ORDERED: hydrALAZINE INJ 20 MG/ML VIAL IVP PRN ×2 (12:47)
[2021-08-20] MEDS ORDERED: METOCLOPRAMIDE 10 MG/2 ML VIAL IVP PRN (12:47)
[2021-08-20] MEDS ORDERED: LABETALOL 20 MG/4 ML SYRINGE IVP PRN ×3 (12:47)
[2021-08-20] MEDS ORDERED: TERBUTALINE 1 MG/ML VIAL SUBQ PRN (12:47)
[2021-08-20] MEDS ORDERED: MAGNESIUM SULFATE 4 GRAM 4 GM/50 ML BAG IV PRN (12:47)
[2021-08-20] MEDS ORDERED: LACTATED RINGERS 1,000 ML IV SCH (13:00)
[2021-08-20] MEDS: miSOPROStoL 100 MCG TABLET BC SCH ×3 (13:27→22:01)
[2021-08-20] MEDS ORDERED: LACTATED RINGERS 1,000 ML ONE (13:31)
[2021-08-20] MEDS ORDERED: SODIUM CHLORIDE FLUSH 0.9% 10 ML SYRINGE IVP SCH (17:00)
[2021-08-20] MEDS: LACTATED RINGERS 1,000 ML IV SCH (19:26)
--- NOTE | 2021-08-20 21:24 | HISTORY & PHYSICAL EXAMINATION ---
Admit History - Visit Reason Visit Reason: Other - : 1 Parity: 0 Risk/History: positive: induced HTN Complications This : positive: induced HTN Smoking Status: Never smoker - Mother's Labs Mother's Blood Type: positive: O Mother's RH: positive: Positive GBS: positive: Group B Step Negative Rubella Status: positive: Immune - Other Maternal History Other Maternal History: ID: Patient is a 30 yo at 37+3 wga admitted for IOl for gestattional hypertension. HPI: Patient has been receiving care at [facility], initially with midwifery and then as a transfer to [place] care due to new onset gestational hypertension at 32 wga. Her PIH labs have been normal prior to admission and she has been negative for proteinuria. She is admitted today for induction of labor. Her blood pressures have been normal to mild range. PIH labs are wnl other than P:C is 0.7, which is a change. She endorses FM. Denies LOF/VB/CTX. She is GBS and HSV negative. PNC: LMP 12/01/2020 JADIEL by LMP 09/07/2021 JAIDEL by initial ultrasound 09/02/2021 (differs x 5 days) Final JADIEL 09/07/2021 by LMP O pos/Rubella imm VZV:imm Genetic testing: declines FAS: completed in [place] [facility] [address] Influenza: decline TDAP decline GBS -08/10/2021 NEGATIVE HSV: denies in self and partner Breast pump Rx 07/04 MOD: Anticipate ; Josue; "wait and see" approach; pp contraception: unsure pap: 02/07/2021- nilm (HPV neg). Hx abnormal with colpo PMH: SI joint dysfunction right side History of abnormal Pap with colposcopy, subsequent Pap normal 2017 PSH: Appendectomy Knee surgery OBHX: G0 LMP (date): 12/01/2020 LMP - Character: normal Menarche: 13 years Menses interval: 28-30 days Menstrual flow 5-7 days On BCP's at conception: no Date of positive (+) home preg. 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 Felix this am EFM 145 mod sarah 15x15 accels no decels TOCO: irritable A/P: 30 yo at 37+3 wga here for IOL for GHTN, now with likely pre-eclampsia with mild features. PRE-E: Now with P:C 0.7, remainder of PIH labs wnl, no symptoms - BPs normal, mild rnage -Cont to monitor BPs and symptoms -start antihypertensives with SBP>160 or DBP> 110; magnesium with onset of severe fearures -Avoid methergine in setting of PPH IOL: Primip with unfavoranle cervix -Misoprostol 50 mcg BC Q4H to max dose of 6 -Reviewed possibility of guo balloon placement -AROM as appropriate -Pitocin with favorable FWB: Vertex, GBS neg, Cat I tracing, well grown -CEFM PAIN: Wants to attempt umedicated delivery. Open to epidural -Reviewed options of fentanyl/nitrous oxide/epidural and pain mitigation such as tub baths -Reviewed fentanyl is for short term use, eg with placement of Guo or while awaiting [facility] availability for LEP. Not to be given after 7 cm -Reviewed use of nitrous oxide. Not to be given with fentanyl Admitted to observation status with plan to convert to in-patient with onset of active labor, rupture of membranes, initiation of pitocin, or placement of LEP Meds/Allgy - Home Medications Home Medications: Ambulatory Orders Medication Instructions Recorded Confirmed Nitrofurantoin Monohyd/M-Cryst 1 tab PO BID 5 Days capsule 08/01/17 08/03/17 [Macrobid 100 mg Capsule] metroNIDAZOLE [Flagyl] 500 mg PO BID #14 tablet 08/03/17 Cyclobenzaprine [Flexeril] 10 mg PO TID PRN #20 tablet 02/19/20 oxyCODONE/ACET 5/325 [Percocet 5 1 - 2 each PO Q4-6H PRN #14 tablet 02/18/ mg/325 mg] - Allergies Allergies/Adverse Reactions: Allergies Allergy/AdvReac Type Severity Reaction Status Date / Time No Known Drug Allergies Allergy Verified 02/19/20 05:40 Physical - Abdominal Exam Vital Signs: Temp Pulse Resp BP Pulse Ox 98.2 F 08/20/21 08:50
--- NOTE | 2021-08-20 23:14 | PROVIDER PROGRESS NOTE ---
Subjective - Prog Note Date Prog Note Date: 08/20/21 Prog Note Time: 18:12 - Subjective Subjective: Has received miso 50 mcg x2. Doing well. No concerns. Planning on tub bath. Cat I tracing Cont with miso for cervical ripening Objective - Lab Results Fish Bones: 08/20/21 09:50 08/20/21 09:50 Other Labs: Lab Results x24hrs 08/20/21 08/20/21 08/20/21 Range/Units 10:50 09:50 09:50 WBC 11.9 H (4.8-10.8) x10^3/uL RBC 3.89 L (4.20-5.40) 10^6/uL Hgb 11.8 L (12.0-16.0) g/dL Hct 35.6 L (37.0-47.0) % MCV 91.5 (81.0-99.0) fL MCH 30.3 (27.0-31.0) pg MCHC 33.1 (32.0-36.0) g/dL RDW 12.8 (12.0-15.0) % Plt Count 200 (130-450) 10^3/uL MPV 10.5 (7.9-10.8) fL Neut # (Auto) 9.7 H (1.5-6.6) 10^3/uL Lymph # (Auto) 1.4 L (1.5-3.5) 10^3/uL Harrison # (Auto) 0.6 (0.0-1.0) 10^3/uL Eos # (Auto) 0.1 (0.0-0.7) 10^3/uL Baso # (Auto) 0.0 (0.0-0.1) 10^3/uL Absolute Nucleated RBC 0.00 x10^3/uL Nucleated RBC % 0.0 /100WBC Sodium (135-145) mmol/L Potassium (3.5-5.0) mmol/L Chloride (101-111) mmol/L Carbon Dioxide (21-32) mmol/L Anion Gap (6-13) BUN (6-20) mg/dL Creatinine (0.4-1.0) mg/dL Estimated GFR (MDRD) (>89) Glucose (70-100) mg/dL Calcium (8.5-10.3) mg/dL Total Bilirubin (0.2-1.0) mg/dL AST (10-42) IU/L ALT (10-60) IU/L Alkaline Phosphatase (42-121) IU/L Total Protein (6.7-8.2) g/dL Albumin (3.2-5.5) g/dL Globulin (2.1-4.2) g/dL Albumin/Globulin Ratio (1.0-2.2) Urine Creatinine 95.6 mg/dL Ur Total Protein Timed 66 mg/dL Protein/Creatinin Ratio 0.7 H (<=0.2) Blood Type O POSITIVE Antibody Screen NEGATIVE 08/20/21 Range/Units 09:50 WBC (4.8-10.8) x10^3/uL RBC (4.20-5.40) 10^6/uL Hgb (12.0-16.0) g/dL Hct (37.0-47.0) % MCV (81.0-99.0) fL MCH (27.0-31.0) pg MCHC (32.0-36.0) g/dL RDW (12.0-15.0) % Plt Count (130-450) 10^3/uL MPV (7.9-10.8) fL Neut # (Auto) (1.5-6.6) 10^3/uL Lymph # (Auto) (1.5-3.5) 10^3/uL Harrison # (Auto) (0.0-1.0) 10^3/uL Eos # (Auto) (0.0-0.7) 10^3/uL Baso # (Auto) (0.0-0.1) 10^3/uL Absolute Nucleated RBC x10^3/uL Nucleated RBC % /100WBC Sodium 133 L (135-145) mmol/L Potassium 3.6 (3.5-5.0) mmol/L Chloride 102 (101-111) mmol/L Carbon Dioxide 21 (21-32) mmol/L Anion Gap 10.0 (6-13) BUN 8 (6-20) mg/dL Creatinine 0.4 (0.4-1.0) mg/dL Estimated GFR (MDRD) 187 (>89) Glucose 105 H (70-100) mg/dL Calcium 9.7 (8.5-10.3) mg/dL Total Bilirubin 0.2 (0.2-1.0) mg/dL AST 23 (10-42) IU/L ALT 27 (10-60) IU/L Alkaline Phosphatase 125 H (42-121) IU/L Total Protein 6.4 L (6.7-8.2) g/dL Albumin 2.8 L (3.2-5.5) g/dL Globulin 3.6 (2.1-4.2) g/dL Albumin/Globulin Ratio 0.8 L (1.0-2.2) Urine Creatinine mg/dL Ur Total Protein Timed mg/dL Protein/Creatinin Ratio (<=0.2) Blood Type Antibody Screen
[2021-08-21] MEDS: miSOPROStoL 100 MCG TABLET BC SCH ×4 (02:30→16:06)
[2021-08-21] MEDS ORDERED: METOCLOPRAMIDE 10 MG/2 ML VIAL IVP PRN (06:31)
[2021-08-21] MEDS: ONDANSETRON 4 MG/2 ML VIAL IVP PRN ×3 (06:35→19:54)
[2021-08-21] MEDS: SODIUM CHLORIDE FLUSH 0.9% 10 ML SYRINGE IVP PRN ×3 (06:36→19:55)
--- NOTE | 2021-08-21 09:35 | PROVIDER PROGRESS NOTE ---
Labor Progress Note - Uterine Monitoring Uterine Monitoring Mode: positive: External toco Contraction Intensity: positive: Mild Uterine Resting Tone: positive: Soft - Monitoring Monitor Mode: positive: External ultrasound Heart Rate Baseline: 140 Heart Rate Variability: positive: Moderate (6-25 bmp) Accelerations: positive: Present, 15x15 Decelerations: positive: None - Vaginal Exam Dilation (in cm): 2 Effacement (%): 80 Station: -2 (Most recent exam) - Labor Progress Note Labor Progress Note/Additional Text: Induction of labor -Patient has received 5 doses of misoprostol. Subsequent dose next dose due in less than 1 hour. Will reassess cervix at that time. If favorable, will consider oxytocin and/or amniotomy. Otherwise plan on 6 dose of misoprostol. -Category 1 tracing -Does have some uterine irritability that appears intermixed with contractions. She is not feeling the cramping from the irritability at this time, it appears safe to continue induction. If she develops tachysystole, will take appropriate steps. Gestational hypertension -No significantly elevated blood pressures. -Most recent BP 138/79 -No signs or symptoms of preeclampsia.
[2021-08-21] MEDS ORDERED: OXYTOCIN/SODIUM CHLORIDE 500 ML IV SCH (13:00)
[2021-08-21] MEDS: OXYTOCIN/SODIUM CHLORIDE 500 ML IV SCH (13:08)
[2021-08-21] MEDS: LACTATED RINGERS 1,000 ML IV SCH ×3 (13:08→22:22)
[2021-08-21] MEDS: CALCIUM CARBONATE CHEW 500 MG TABLET PO PRN ×2 (13:59→19:51)
--- NOTE | 2021-08-21 14:35 | PROVIDER PROGRESS NOTE ---
Labor Progress Note - Uterine Monitoring Uterine Monitoring Mode: positive: External toco Contraction Frequency (min/apart): every 2-4 minutes Contraction Intensity: positive: Mild to moderate Uterine Resting Tone: positive: Soft - Monitoring Monitor Mode: positive: External ultrasound Heart Rate Baseline: 130 Heart Rate Variability: positive: Moderate (6-25 bmp) Accelerations: positive: Present, 15x15 Decelerations: positive: None - Vaginal Exam Dilation (in cm): 2 Effacement (%): 80 Station: -2 - Labor Progress Note Labor Progress Note/Additional Text: Oxytocin initiated previously due to uterine irritability and actions making monitoring difficult. Attempted low-dose of oxytocin to normalize contraction pattern. She was skyler too often for misoprostol. Her cervical exam remains unchanged. Blood pressures remain normal. Plan to continue oxytocin at this time.
--- NOTE | 2021-08-21 18:09 | PROVIDER PROGRESS NOTE ---
Labor Progress Note - Uterine Monitoring Uterine Monitoring Mode: positive: External toco Contraction Frequency (min/apart): 1-3 minutes Contraction Intensity: positive: Mild to moderate Uterine Resting Tone: positive: Soft - Monitoring Monitor Mode: positive: External ultrasound Heart Rate Baseline: 130 Heart Rate Variability: positive: Moderate (6-25 bmp) Accelerations: positive: Present, 15x15 Decelerations: positive: None - Vaginal Exam Dilation (in cm): 2 Effacement (%): 80 Station: -2 Cervical Position: Posterior - Labor Progress Note Labor Progress Note/Additional Text: Skyler too frequently, so oxytocin was recently halved. Currently at 4 milliunits/min. Discussed options with patient, and agreed to cervical ripening balloon to decrease her oxytocin. As we need to decrease her oxytocin and skyler two frequently for misoprostol. Plan to allow cervical ripening balloon to work and attempt amniotomy and IUPC after its removal to better moderate contraction frequency and intensity. Blood pressure remains normal, with most recent blood pressure of 126/72. No signs or symptoms of preeclampsia
[2021-08-21] MEDS ORDERED: ACETAMINOPHEN 500 MG TABLET PO PRN (21:19)
[2021-08-21] MEDS ORDERED: diphenhydrAMINE 25 MG CAPSULE PO PRN (21:20)
[2021-08-21] MEDS: fentaNYL 100 MCG/2 ML VIAL IVP PRN (21:41)
[2021-08-22] MEDS: fentaNYL 100 MCG/2 ML VIAL IVP PRN (00:12)
[2021-08-22] MEDS: CALCIUM CARBONATE CHEW 500 MG TABLET PO PRN ×4 (00:16→15:09)
[2021-08-22] MEDS: miSOPROStoL 100 MCG TABLET BC SCH ×6 (01:50→13:49)
[2021-08-22] MEDS: ONDANSETRON 4 MG/2 ML VIAL IVP PRN ×2 (04:17→12:23)
--- NOTE | 2021-08-22 08:46 | PROVIDER PROGRESS NOTE ---
Labor Progress Note - Uterine Monitoring Uterine Monitoring Mode: positive: External toco Contraction Frequency (min/apart): 2-3 minutes Contraction Intensity: positive: Moderate Uterine Resting Tone: positive: Soft - Monitoring Monitor Mode: positive: External ultrasound Heart Rate Baseline: 140 Heart Rate Variability: positive: Moderate (6-25 bmp) Accelerations: positive: Present, 15x15 Decelerations: positive: None Strip Review: positive: Category I - Vaginal Exam Dilation (in cm): 6 Effacement (%): 100 Station: -3 Cervical Position: Midposition - Labor Progress Note Labor Progress Note/Additional Text: Patient remained category 1 overnight. Cervical ripening balloon removed at 12 hours. Currently on 9 milliunits/min of oxytocin. Category 1 tracing. Marquis every 2 to 3 minutes. Currently 6 cm dilated. Patient consented amniotomy which was performed with a small amount of clear fluid. IUPC placed. Plan to continue labor induction with oxytocin at this time.
[2021-08-22] MEDS ORDERED: ROPIVACAINE 0.2% 200 MG/100 ML BAG EP ONE (10:14)
--- NOTE | 2021-08-22 10:25 | PROVIDER PROGRESS NOTE ---
Labor Progress Note - Uterine Monitoring Uterine Monitoring Mode: positive: IUPC Contraction Frequency (min/apart): 2-3 : Increased resting tone. Contraction Intensity: positive: Strong - Monitoring Heart Rate Variability: positive: Minimal (0-5 bpm) Accelerations: positive: Present, 15x15 Decelerations: positive: Late (intermittent), Prolonged (>2x10 min) Strip Review: positive: Category II - Vaginal Exam Dilation (in cm): 6 Effacement (%): 100 Station: -3 Cervical Position: Posterior - Labor Progress Note Labor Progress Note/Additional Text: After IUPC was placed, uterine resting tone was increased, so oxytocin was discontinued. Around that time, patient had two late decelerations. Approximately 10 minutes later, the patient had a prolonged deceleration and was repositioned with recovery of fetus. Patient was having increasingly painful contractions and asked for an epidural. Other than the pain, she is doing well.
--- NOTE | 2021-08-22 10:45 | ANESTHESIA ---
Pre-Anesthesia VS, & Labs - Diagnosis active labor - Procedure labor epidural Vital Signs: Temp Pulse Resp BP Pulse Ox 36.8 C 08/20/21 08:50 Height: 5 ft 9 in Weight (kg): 116.845 kg Body Mass Index: 38.0 BMI Classification: Obese - NPO >8 hours - Is Patient ?: Yes - Lab Results Current Lab Results: Laboratory Tests 08/20/21 09:50: WBC 11.9 H, RBC 3.89 L, Hgb 11.8 L, Hct 35.6 L, MCV 91.5, MCH 30.3, MCHC 33.1, RDW 12.8, Plt Count 200, MPV 10.5, Neut # (Auto) 9.7 H, Lymph # (Auto) 1.4 L, Brown # (Auto) 0.6, Eos # (Auto) 0.1, Baso # (Auto) 0.0, Absolute Nucleated RBC 0.00, Nucleated RBC % 0.0 08/20/21 09:50: Blood Type O POSITIVE, Antibody Screen NEGATIVE 08/20/21 09:50: Sodium 133 L, Potassium 3.6, Chloride 102, Carbon Dioxide 21, Anion Gap 10.0, BUN 8, Creatinine 0.4, Estimated GFR (MDRD) 187, Glucose 105 H, Calcium 9.7, Total Bilirubin 0.2, AST 23, ALT 27, Alkaline Phosphatase 125 H, Total Protein 6.4 L, Albumin 2.8 L, Globulin 3.6, Albumin/Globulin Ratio 0.8 L Fish Bones: 08/20/21 09:50 08/20/21 09:50 Home Medications and Allergies Active Medications Acetaminophen (Acetaminophen 500 Mg Tablet) 1,000 mg PO Q6HR PRN PRN Reason: Pain or Fever > 38C (100.4F) Last Admin: 08/21/21 21:42 Dose: 1,000 mg Documented by: Calcium Carbonate/Glycine (Calcium Carbonate Chew 500 Mg Tablet) 1,000 mg PO Q3H PRN PRN Reason: Heartburn Last Admin: 08/22/21 06:35 Dose: 1,000 mg Documented by: Carboprost Tromethamine (Carboprost Tromethamine 250 Mcg/Ml Amp) 250 mcg IM Q15M PRN PRN Reason: Step 4: Hemorrhage protocol Stop: 08/25/21 12:41 Diphenhydramine HCl (Diphenhydramine 25 Mg Capsule) 25 mg PO QPM PRN PRN Reason: Insomnia Last Admin: 08/21/21 21:42 Dose: 25 mg Documented by: Fentanyl (Fentanyl 100 Mcg/2 Ml Vial) 50 mcg IVP Q1H PRN PRN Reason: PAIN Last Admin: 08/22/21 00:12 Dose: 50 mcg Documented by: Hydralazine HCl (Hydralazine Inj 20 Mg/Ml Vial) 5 - 20 mg IVP Q20M PRN; Protocol PRN Reason: SBP >160 or DBP >110 Hydralazine HCl (Hydralazine Inj 20 Mg/Ml Vial) 10 mg IVP .ONCE PRN; Protocol PRN Reason: Step 9 of Labetalol protocol Stop: 08/25/21 12:55 Oxytocin/Sodium Chloride (Pitocin/Sodium Chloride) 500 mls @ 999 mls/hr IV PRN PRN; Protocol PRN Reason: POST- HEMORR PREVENTION Stop: 08/25/21 12:41 Tranexamic Acid (Tranexamic 1,000 Mg/100ml-Nacl) 1,000 mg in 100 mls @ 600 mls/hr IV .ONCE PRN PRN Reason: EBL >1200mL and within 3hr Stop: 08/25/21 12:41 Lactated Ringer's (Lr) 1,000 mls @ 100 mls/hr IV .Q10H MIMI Last Admin: 08/21/21 22:22 Dose: 100 mls/hr Documented by: Oxytocin/Sodium Chloride (Pitocin/Sodium Chloride) 500 mls @ 2 mls/hr IV TITR MIMI; Protocol Last Titration: 08/21/21 16:00 Dose: 7 milliunit/min, 7 mls/hr Documented by: Labetalol HCl (Labetalol 20 Mg/4 Ml Syringe) 20 - 80 mg IVP Q10M PRN; Protocol PRN Reason: SBP >160 or DBP >110 Labetalol HCl (Labetalol 20 Mg/4 Ml Syringe) 20 mg IVP .ONCE PRN; Protocol PRN Reason: Step 9 of nifedipine protocol Stop: 08/25/21 12:55 Labetalol HCl (Labetalol 20 Mg/4 Ml Syringe) 40 mg IVP .ONCE PRN; Protocol PRN Reason: Step 9 of hydrALAZine protocol Stop: 08/25/21 12:55 Lidocaine HCl (Lidocaine-Mpf 1% 30 Ml Vial) 30 ml ID .ONCE PRN PRN Reason: PERINEAL REPAIR Stop: 08/25/21 12:41 Methylergonovine Maleate (Methylergonovine 0.2 Mg/Ml Vial) 0.2 mg IM .ONCE PRN PRN Reason: Step 2: Hemorrhage protocol Stop: 08/25/21 12:41 Metoclopramide HCl (Metoclopramide 10 Mg/2 Ml Vial) 5 mg IVP Q6HR PRN PRN Reason: Nausea / Vomiting Misoprostol (Misoprostol 200 Mcg Tablet) 800 mcg BC .ONCE PRN PRN Reason: Step 3: Hemorrhage protocol Stop: 08/25/21 12:41 Misoprostol (Misoprostol 100 Mcg Tablet) 50 mcg BC Q4H MIMI Last Admin: 08/22/21 04:21 Dose: Not Given Documented by: Nifedipine (Nifedipine 10 Mg Capsule) 10 - 20 mg PO Q20M PRN; Protocol PRN Reason: SBP >160 or DBP >110 Ondansetron HCl (Ondansetron 4 Mg/2 Ml Vial) 4 mg IVP Q4HR PRN PRN Reason: Nausea / Vomiting Last Admin: 08/22/21 04:17 Dose: 4 mg Documented by: Oxytocin (Oxytocin 10 Unit/Ml Vial) 10 unit IM .ONCE PRN PRN Reason: Step one: If no IV access Stop: 08/25/21 12:41 Sodium Chloride (Sodium Chloride Flush 0.9% 10 Ml Syringe) 10 ml IVP PRN PRN PRN Reason: NEEDED PER PROVIDER ORDERS Last Admin: 08/21/21 12:44 Dose: 10 ml Documented by: Allergies/Adverse Reactions: Allergies Allergy/AdvReac Type Severity Reaction Status Date / Time No Known Drug Allergies Allergy Verified 02/19/20 05:40 Anes History & Medical History - Anesthetic History Anesthesia Complications: reports: No previous complications Family history of Anesthesia Complications: Denies Family history of Malignant Hyperthermia: Denies - Medical History Cardiovascular: reports: None Pulmonary: reports: None Smoking Status: Never smoker - Surgical History General: reports: Appendectomy Orthopedic: reports: Knee replacement - Obstetrical History : 1 Parity: 0 Events: reports: induced HTN Complications: reports: induced HTN Exam General: Alert, Oriented x3, Cooperative Dental: WNL Mouth Openin Fingerbreadth Neck Mobility: Normal Mallampati classification: II Thyromental Distance: 4-6 cm Respiratory: Lungs clear Cardiovascular: Regular rate Plan Anesthesia Type: Epidural Consent for Procedure(s) Verified and Reviewed: Yes Code Status: Attempt Resuscitation ASA classification: 2-Mild systemic disease Is this case an emergency?: No
[2021-08-22] MEDS ORDERED: ROPIVACAINE 0.2% 200 MG/100 ML BAG EP PRN (10:46)
[2021-08-22] MEDS ORDERED: NALBUPHINE 10 MG/ML AMP IVP PRN (10:46)
[2021-08-22] MEDS ORDERED: ePHEDrine 50 MG/ML VIAL IVP PRN (10:46)
[2021-08-22] MEDS ORDERED: ONDANSETRON 4 MG/2 ML VIAL IVP PRN (10:46)
[2021-08-22] MEDS ORDERED: METOCLOPRAMIDE 10 MG/2 ML VIAL IVP PRN (10:46)
[2021-08-22] MEDS ORDERED: NALOXONE 0.4 MG/ML VIAL IVP PRN (10:46)
[2021-08-22] MEDS ORDERED: diphenhydrAMINE INJ 50 MG/ML VIAL IVP PRN (10:46)
[2021-08-22] MEDS: LACTATED RINGERS 1,000 ML IV SCH ×2 (11:35→12:35)
[2021-08-22] MEDS: SODIUM CHLORIDE FLUSH 0.9% 10 ML SYRINGE IVP PRN (12:23)
[2021-08-22] MEDS: OXYTOCIN/SODIUM CHLORIDE 500 ML IV SCH (13:46)
--- NOTE | 2021-08-22 14:02 | PROVIDER PROGRESS NOTE ---
Labor Progress Note - Uterine Monitoring Contraction Frequency (min/apart): 3-5 Contraction Intensity: positive: Moderate Uterine Resting Tone: positive: Hard Other Uterine Monitoring: Increased resting tone, approximately 45 - Monitoring Monitor Mode: positive: External ultrasound Heart Rate Baseline: 140 Heart Rate Variability: positive: Moderate (6-25 bmp) Accelerations: positive: Present, 15x15 Decelerations: positive: None - Vaginal Exam Dilation (in cm): 8 Effacement (%): 100 Station: 0 - Labor Progress Note Labor Progress Note/Additional Text: Patient continues to make change on her own. No augmentation at this time. Uterine resting tone remains increased despite multiple attempts at zeroing and replacing IUPC. We will continue without augmentation as fetus has a category 1 tracing and patient is changing spontaneously.
[2021-08-22] MEDS ORDERED: SIMETHICONE CHEW 80 MG TABLET PO PRN (19:52)
[2021-08-22] MEDS ORDERED: LACTATED RINGERS 1,000 ML IV SCH (20:00)
--- NOTE | 2021-08-22 20:03 | DELIVERY NOTE ---
Delivery Note - Labor Labor: positive: Augmented by ARM, Induced by oxytocin - Delivery Method Infant Delivery Method: positive: Spontaneous vaginal delivery - Cervical Ripening Method Cervical Ripening Method: positive: Balloon device, Misoprostil - Presentation Presentation: positive: GAEL - right occiput anterior - Nuchal Cord Nuchal Cord: positive: None - Anesthetic Anesthetic Type: - Amniotic Fluid Description Amniotic Fluid Description: positive: Clear - Episiotomy Type Episiotomy Type: positive: None - Laceration Laceration: positive: 2nd degree - Suture Suture Type: positive: Vicryl Suture Size: positive: 3-0 - Delivery Outcome Delivery Outcome: positive: Livebirth - [place]: positive: Placed in direct skin contact with mother, Bulb syringe, [place] used [place] sex: positive: Male - Cord Cord: positive: 3 vessels - Placenta Placenta: positive: Intact - Estimated Blood Loss Estimated Blood Loss (in cc): 450 - Post Delivery Events Post Delivery Events: positive: No post delivery events - Delivery Comments (Free Text/Narrative) Delivery Comments (Free Text/Narrative): Preoperative Diagnoses 30-year-old at 37 weeks 5 days gestation Gestational hypertension Postoperative Diagnoses Same Prolonged second stage Delivered Delivery Summary: Patient was placed in the dorsal lithotomy position. Upon maternal pushing the head was delivered atraumatically followed by the anterior shoulder, posterior shoulder, then the remainder of the infant's body. A male infant was delivered with APGARS of 8 at 1 minute and 9 at 5 minutes. The was placed on its mother's chest . After the cord finished pulsating, the umbilical cord was clamped times two and cut. The placenta delivered intact with three vessel cord. Placenta was not sent to pathology. Thirty units of Pitocin were added to the IV fluid and allowed to run freely. Uterine massage was performed until uterus was deemed firm. Upon inspection the perineum, a second-degree midline laceration was noted and repaired with a running suture of 3-0 Vicryl. Upon re-inspection the patient was hemostatic. Uterus again massaged and found to be firm. Needle and sponge counts were correct. Patient was stable and allowed to recover in L&D room. Infant was stable and remained in room with mother. weight is pending at this time.
[2021-08-22] MEDS: IBUPROFEN 600 MG TABLET PO SCH (21:28)
[2021-08-22] MEDS: DOCUSATE SODIUM 100 MG CAPSULE PO PRN (21:28)
[2021-08-22] MEDS: ACETAMINOPHEN 500 MG TABLET PO SCH (22:49)
[2021-08-23] MEDS: IBUPROFEN 600 MG TABLET PO SCH ×4 (03:42→21:13)
[2021-08-23] MEDS: DOCUSATE SODIUM 100 MG CAPSULE PO PRN ×2 (09:08→21:13)
[2021-08-23] MEDS: ACETAMINOPHEN 500 MG TABLET PO SCH (09:08)
--- NOTE | 2021-08-23 10:34 | PROVIDER PROGRESS NOTE ---
Subjective - Prog Note Date Prog Note Date: 08/23/21 Prog Note Time: 10:34 - Subjective Subjective: Subjective Patient reports she is doing well. Lochia appropriate. Denies heavy bleeding. Ambulating. Pelvic and abdominal pain well-controlled. Tolerating oral intake. Diet: Regular. Voiding without difficulty. Passing flatus. Denies BM. Patient is bonding with baby in room Breast feeding going well. Denies feeling lightheaded, dizzy or excessively fatigued. Objective General: Alert, oriented, no apparent distress. Cardiovascular: Regular rate. Regular rhythm. No murmur. Lungs: Clear to auscultation. Good air movement. No crackles or wheezes Abdomen: Uterus firm. Below umbilicus. Normal active bowel sounds. No guarding or rebound. Extremities: Normal pedal pulses. No edema. No cords. Assessment and Plan day 1. -Routine care -Anticipate discharge tomorrow gestational hypertension Gestational hypertension -Blood pressures remain intermittently elevated, but not severe. Most recent blood pressure 140/68. Objective - Vital Signs/Intake & Output Vital Signs: Vital Signs x48h Temp Pulse Resp BP Pulse Ox 08/23/21 09:54 97.7 F 96 18 148/69 H 99 08/23/21 03:47 97.9 F 88 20 137/67 H 99 Intake & Output: Intake & Output 08/20/21 08/21/21 08/22/21 08/23/21 23:59 23:59 23:59 23:59 Intake Total 423.127 7304.267 400 Output Total 500 3475 560 Balance 005.072 5497.267 -160 - Lab Results Fish Bones: 08/20/21 09:50 08/20/21 09:50
[2021-08-23] MEDS: CALCIUM CARBONATE CHEW 500 MG TABLET PO PRN (21:44)
[2021-08-24] MEDS: ACETAMINOPHEN 500 MG TABLET PO SCH ×2 (00:04→08:55)
[2021-08-24] MEDS: IBUPROFEN 600 MG TABLET PO SCH ×2 (03:33→08:56)
[2021-08-24 08:16] VITALS: BP 140/70
[2021-08-24] MEDS: DOCUSATE SODIUM 100 MG CAPSULE PO PRN (08:56)
--- NOTE | 2021-08-24 08:57 | DISCHARGE SUMMARY ---
Discharge Summary Admit Date: 08/20/21 Discharge Date: 08/24/12 Discharging Provider: Gabo Felix MD Code Status: Attempt Resuscitation Condition at Discharge: Good Discharge Disposition: 01 Home, Self Care - DIAGNOSES Admission Diagnoses: Gestational Hypertension 37 weeks gestation Discharge Diagnoses with Status of Each Condition: 37 weeks gestation - delivered Gestational hypertension- Delivered. Follow blood pressures . - HPI History of Present Illness: Subjective Patient reports she is doing well. Lochia appropriate. Denies heavy bleeding. Ambulating. Pelvic and abdominal pain well-controlled. Tolerating oral intake. Diet: Regular. Voiding without difficulty. Passing flatus. Denies BM. Patient is bonding with baby in room Breast feeding going well. Denies feeling lightheaded, dizzy or excessively fatigued. Objective Temp Pulse Resp BP Pulse Ox 98.6 F 86 20 140/70 H 99 08/24/21 08:15 08/24/21 08:15 08/24/21 08:15 08/24/21 08:15 08/24/21 08:15 General: Alert, oriented, no apparent distress. Cardiovascular: Regular rate. Regular rhythm. No murmur. Lungs: Clear to auscultation. Good air movement. No crackles or wheezes Abdomen: Uterus firm. Below umbilicus. Normal active bowel sounds. No guarding or rebound. Extremities: Normal pedal pulses. No edema. No cords. Assessment and Plan day 2. -Routine care -Anticipate discharge today Gestational hypertension -Elevated, but not severe blood pressures. Will follow . - HOSPITAL COURSE Hospital Course: Patient is a 30-year-old G1, P1 who presented at 37 weeks 3 days gestation for induction of labor secondary to gestational hypertension. She had previously declined induction at 37 and 0. She had a long induction of started misoprostol, cervical ripening balloon and oxytocin. During her labor, she had no resting tone of the oxytocin so was discontinued. Patient continued to labor on her own and had a spontaneous vaginal delivery. She had an uneventful course and was discharged on day 2. - ALLERGIES Allergies/Adverse Reactions: Allergies Allergy/AdvReac Type Severity Reaction Status Date / Time No Known Drug Allergies Allergy Verified 08/22/21 22:23 - MEDICATIONS Home Medications: Ambulatory Orders Medication Instructions Recorded Confirmed Nitrofurantoin Monohyd/M-Cryst 1 tab PO BID 5 Days capsule 08/01/17 08/03/17 [Macrobid 100 mg Capsule] metroNIDAZOLE [Flagyl] 500 mg PO BID #14 tablet 08/03/17 Cyclobenzaprine [Flexeril] 10 mg PO TID PRN #20 tablet 02/19/20 oxyCODONE/ACET 5/325 [Percocet 5 1 - 2 each PO Q4-6H PRN #14 tablet 02/18/20 mg/325 mg] - LABS Result Diagrams: 08/20/21 09:50 08/20/21 09:50 - FOLLOW UP Follow Up: Gabo Felix MD, [facility] in 1-2 weeks. - TIME SPENT Time Spent in Discharge (Minutes): 20
--- NOTE | 2021-08-24 09:04 | Discharge Plan ---
Discharge Plan Problem Reviewed?: Yes Disposition: Home, Self Care Condition: Good Diet: Regular Activity Restrictions: Additional Comments Shower Restrictions: No Driving Restrictions: No Weight Bearing: Full Weight Instruction Topics: Vaginal After, Depression No Smoking: If you smoke, Please STOP! Call for help. Follow-up with: Gabo Felix MD [Provider Admit Priv/Credential] -
== END 2021-08-24 11:15 | disposition home or self-care (01) | DRG 807 ==
LOC: WFO 07:33 → FBP 07:45 → WFO 12:39 → FBP 12:40 → OBSVTOIN 08-21 13:50
PROVIDERS: ADMIT Obstetrics & Gynecology; ATTEND Obstetrics & Gynecology
PROC: 0U7C7ZZ Dilation of Cervix, Via Natural or Artificial Opening (ICD-10-PCS; 2021-08-21)
PROC: 0KQM0ZZ Repair Perineum Muscle, Open Approach (ICD-10-PCS; principal; 2021-08-22)
PROC: 10E0XZZ Delivery of Products of Conception, External Approach (ICD-10-PCS; 2021-08-22)
DX: O13.4 Gestational [pregnancy-induced] hypertension without significant proteinuria, complicating childbirth (principal); Z37.0 Single live birth; O70.1 Second degree perineal laceration during delivery; Z3A.37 37 weeks gestation of pregnancy; O99.214 Obesity complicating childbirth
CPT/HCPCS: 36415; 80053; 82570; 84156; 85025; 86850; 86900; 86901; 96365; 96375; 96376; A9270; J7120